=== PATIENT | female | born 2005 | race Caucasian/White ===

== ENCOUNTER 2025-02-04 07:24 | Emergency (ER) | payer MEDICAID, SELFPAY ==
--- OUTSIDE RECORDS SUMMARY | 2025-02-04 07:27 | XMS_ITS | Clinical Summary ---
Author Organization [employer] [facility] Address [address] [place] [id number] Care Team Providers Care Architectural Design Lecturer Name Role Phone Emi Lee MD Primary Care Provi jessica Allergies No known active allergies Medications cholecalciferol (Vitamin D-3) 2,000 unit capsuleIndicati ons:Vitamin D deficiency Take 1 Capsule (2,000 units) by mouth once daily. 90 Capsule 05/07/2024 Active ferrous sulfate 325 mg delayed release tabletIndicatio ns:Iron deficiency anemia secondary to inadequate dietary iron intake Take 1 Tablet (325 mg) by mouth once daily with a meal. 90 Tablet 05/07/2024 Active Active Problems Problem Noted Date Diagnosed Date Nasal congestion 02/21/2012 Epistaxis 12/10/2010 Overweight child 08/11/2008 Resolved Problems Problem Noted Date Diagnosed Date Resolved Date Nonspecific abnormal toxicological findings 08/20/2007 10/28/2009 Overview (08/20/2007): lead level - venous 10 08/2007 Immunizations Immunization Administration Dates Next Due COVID-19 vaccine (LSEOBio NTech 30mcg/0.3mL) 12YO+ BIVALENT PF, MDV 12/16/2021 COVID-19 vaccine (Advanced LEDs-Bio NTech 30mcg/0.3mL) PF, MDV 04/14/2021,03/23/2021 DTaP 12/27/2006, 6,2005,10/06 DTaP-IPV (Kinrix) 08/05/2009 HIB PRP-OMP (PedvaxHIB) 12/27/2006,2005, HPV 9 (Gardasil 9) 12/18/2018,12/08/2017 Hepatitis A (Peds) 08/08/2007,08/04/2006 Hepatitis B (Peds) 02/08/2006,2005, 006 Inactivated Polio Vaccine 02/08/2006,2005, 2005 Influenza A (H1N1), Inactiva oliva (Age >=3 Years) 05/22/2009 Influenza, IIV3 (Age 6-35 mos) 02/08/2006 Influenza, IIV3 (Age >=3 years) 01/06/2011,05/22 Influenza, IIV4 12/16/2021,,12/18/2018,12/08 MENINGOCOCCAL VACCINE 2 VIAL 2MO-55YO (MENVEO) 12/16/2021,12/08/2017 MMR 08/05/2009 MMRV 08/04/2006 Pneumococcal conj 13-Valent (Prevnar 13) 08/05/2009 Pneumococcal conj 7-Valent (Prevnar 7) 0 12/27/2006,02/08/2006,2005,10/06 Tdap 12/08/2017 Tuberculin (PPD) 09/06/2010 Varicella Vaccine 08/05/2009 Family History Medical History Relation Name Comments Other Mother overweight Diabetes Other 1 none Hypertension Other 2 none Asthma No Family History Cancer-breast No Family History Cancer-colon No Family History Heart Disease No Family History Relation Name Status Comments Mother Other 1 Other 2 Social History Tobacco Use Types Packs/Day Years Used Date Smoking Tobacco: Never Smokeless Tobacco: Never Tobacco Cessation:Counseling Given: No Comments:no exposure Alcohol Use Standard Drinks/Week Comments Never 0 (1 standard drink = 0.6 oz pur e alcohol) PHQ-2 Answer Date Recorded PHQ-2 TOTAL SCORE 1 05/06/2024 Social Connections Answer Date Recorded Do you often feel lonely or isolated from those around you? 0 05/06/2024 Financial Resource Strain Answer Date R ecorded Difficulty of Paying Living Expenses 3 05/06/2024 Difficulty of Paying Living Expenses Not on file 05/06/2024 Food Insecurity Answer Date Recorded Do you worry your food will run out before you are able to buy more? 1 05/06/2024 Transportation Needs Answer Date Record ed Does lack of transportation keep you from medica l appointments? 1 05/06/2024 Does lack of transportation keep you from work, meetings or getting things that you need? 2 05/06/2024 Housing Stability Answer Date Recorded What is your housing situation today? 2 05/06/2024 Utilities Answer Date Recorded Do you have trouble paying f or utilities (for example, heat, electricity, water, phone)? 1 05/06/2024 Comments No Sex and Gender Information Value Date Recorded Sex Assigned at Not on file Legal Sex Female 7:15 AM PACKAGE REINSPECTOR Gender Identity Not on file Sexual Orientation Not on file Obstetrics History Para Term AB IAB SAB Ectopic Multiple Livin g Live Births 0 0 0 0 0 0 0 0 0 0 0 Last Filed Vital Signs Vital Sign Reading Time Taken Comments Blood Pressure 116/79 05/06/2024 11:21 AM PACKAGE REINSPECTOR Pulse 82 05/06/2024 11:21 AM PACKAGE REINSPECTOR Temperature 36.9 C (98.4 F) 11/30/2022 9:59 AM CDT took tylenol 20 min ago Respiratory Rate 24 08/02/2013 1:24 PM CDT Oxygen Saturation 100% 05/06/2024 11: 21 AM PACKAGE REINSPECTOR Inhaled Oxygen Concentration - - Weight 134.5 kg (296 lb 8 oz) 05/06/2024 11:21 AM PACKAGE REINSPECTOR Height 169.8 cm (5' 6.85) 05/06/2024 1 1:21 AM PACKAGE REINSPECTOR Head Circumference 52 cm 08/11/2008 3: 18 PM CDT Body Mass Index 46.65 05/06/2024 11:21 AM PACKAGE REINSPECTOR Body Mass Index Percentile 99.84% 05/06 11:21 AM PACKAGE REINSPECTOR Growth Chart: CDC (Girls, 2- 20 Years) Plan of Treatment Health Maintenance Due Date Last Done Comments HIV for age 15-65 2020 Well Child Check for age 3-20 03/23/2022, 10/17/2019, 12/08/2017, Additional history exists Hepatitis C screening for ag e 18-79 08/04/2023 Influenza Vaccine (#1) 2024 , 03/23/2021, 12/18/2018, Additional history exists BMI (ht and wt on same day) for age 18+ 05/06/2025 05/06/2024 Depression screening for age 12+ 05/07/2025 05/07/2024, 05/06/2024, 07/20/2022, Additional history exists Tetanus booster 12/09/2027 12/08/2017 RSV vaccine for adults or (1 - 1-dose 75+ series) 2080 Hepatitis B series for 19+ Completed 02/08, 2005, 2005 Pneumococcal series for age 6-49 Completed 08/05/2009, 12/27/2006, 02/08/2006, Additional history exists HPV series for age 9-45 Completed 12/18/2018, 12/08 Meningococcal series for age 11-21 Completed 2021, 12/08/[address] [address] [facility] [address] [id number] Care Teams Architectural Design Lecturer Relationship Specialty Start Date End Date Emi Lee MD [address] [place] [id number] PCP - General 08/03/07
[2025-02-04 07:38] VITALS: BP 128/88; PULSE 76; RESP 20; TEMP 36.8; O2SAT 99; BMI 45.8
--- NOTE | 2025-02-04 08:11 | ED_ITS ---
HPI - General Adult General Chief complaint: Shortness of Breath/Dyspnea Stated complaint: Shortness of breath Time Seen by Provider: 02/04/25 08:11 History of Present Illness HPI narrative: Arrives with complaints of SOB, wheezing, and sneezing that started on Monday. Alert and oriented, VSS, ABCs intact. 19-year-old young woman presenting to the emergency department with concern of some shortness of breath and wheezing. Primary symptom though is wheezing and some tightness in her chest. It sounds like when much younger had wheeze in the past. Unclear etiology; may have been associated with illness and exercise. Has not needed treatment or intervention in a very long time. Unknown allergies. No fever. No cough early. Third day of the symptoms. Related Data Previous Rx's ?Medication ?Instructions ?Recorded albuterol sulfate 90 mcg/actuation 2 inh inhalation QI D PRN #6.7 grams 02/04/25 aerosol inhaler prednisone 20 mg tablet 40 mg (2 x 20 mg) PO DAILY 4 days 02/04/25 #8 tabs Allergies Allergy/AdvReac Type Severity Reaction Status Date / Time No Known Drug Allergies Allergy Verified 02/04/25 07:37 Review of Systems Status of ROS: Reports: 6 or more systems reviewed and unremarkable except as noted in History and below Exam Narrative: Exam Narrative: Pleasant. NAD. Trace end-inspiratory wheeze is audible in the room. Lungs with primarily end inspiratory wheezing. Speaking easily. Heart in regular rate and rhythm without murmur rub or gallop. Good air movement. Has been satting 98 99%. Well-perfused peripherally. Oropharynx is unremarkable. No facial swelling erythema or tenderness. Does not sound particularly congested in the nasopharynx. Const: Vital Signs, click to edit/add: Vital Signs - 24 hr 02/04/25 07:38 Temperature 98.3 F Pulse Rate [Pulse Oximeter] 76 Respiratory Rate 20 Blood Pressure [Ri ght Upper Arm] 128/88 Pulse Oximetry 99 Oxygen Delivery Me thod Room Air Documenting provider has reviewed patient's vital signs: yes Course Vital Signs Vital signs: Initial Vital Signs Temperature 98.3 F 02/04/25 07:38 Temperature Source Temporal Artery Scan 02/04/25 07:38 Pulse Rate 76 02/04/25 07:38 Respiratory Rate 20 02/04/25 07:38 Blood Pressure 128/88 02/04/25 07:38 Blood Pressure Mean 101 02/04/25 07:38 Pulse Oximetry 99 02/04/25 07:38 Oxygen Delivery Method Room Air 02/04/25 07:38 Vital Signs Temperature 98.3 F 02/04/25 07:38 Pulse Rate 76 02/04/25 07:38 Respiratory Rate 20 02/04/25 07:38 Blood Pressure 128/88 02/04/25 07:38 Pulse Oximetry 99 02/04/25 07:38 Oxygen Delivery Method Room Air 02/04/25 07:38 Temperature 98.3 F 02/04/25 07:38 Pulse Rate 76 02/04/25 07:38 Respiratory Rate 20 02/04/25 07:38 Blood Pressure 128/88 02/04/25 07:38 Pulse Oximetry 99 02/04/25 07:38 Oxygen Delivery Method Room Air 02/04/25 07:38 Medical Decision Making MDM Narrative Medical decision making narrative: It would seem that upper respiratory infection a to some wheeze. Since it has been a long time and does not seem to have major URI symptoms otherwise would do a chest x-ray to evaluate for pneumonia or pneumothorax. She does not feel like she ingested anything nor were any exposures noted. Perhaps some bronchospasm associated with the sneezing that had been described? Chest x-ray independently reviewed by me two-view looks WNL. Stable here in the emergency department. See patient discharge plan for further discussion As requested will be sending in prednisone and an albuterol inhaler to your pharmacy. A would seem that you have had a cold of some sort that has resulted in some associated wheeze. If you continue to be struggling with wheeze I would follow-up for more formal testing in clinic. Otherwise return for persistent increasing shortness of breath, worsening chest pain. Medical Records Medical records reviewed: Yes I reviewed the patient's medical records Discharge Plan Discharge Clinical Impression: URI (upper respiratory infection), Wheeze Patient Disposition: Home w/ Parent or Adult Condition: Stable Additional Instructions: As requested will be sending in prednisone and an albuterol inhaler to your pharmacy. A would seem that you have had a cold of some sort that has resulted in some associated wheeze. If you continue to be struggling with wheeze I would follow-up for more formal testing in clinic. Otherwise return for persistent increasing shortness of breath, worsening chest pain. Prescriptions: New prednisone 20 mg tablet 40 mg PO DAILY 4 Days Qty: 8 1RF albuterol sulfate 90 mcg/actuation HFA aerosol inhaler 2 inh inhalation QID PRNQty: 6.7 1RF Rx Instructions: Use with spacer Follow Up/Referrals: Emi Lee MD [Primary Care Provider, Pediatrics] Stand Alone Forms: [employer] Info Instructions
--- NOTE | 2025-02-04 08:20 | CRLHL7_ITS ---
For Patients: As a result of the Century Cures Act, medical imaging exams and procedure reports are released immediately into your electronic medical record. You may view this report before your referring provider. If you have questions, please contact your health care provider. INDICATION: Shortness of breath and wheezing. TECHNIQUE: Chest 2 views. COMPARISON: None FINDINGS: Tubes and devices: None. Lungs: Lungs are clear. No sign of infiltrate or mass. Pleura: No pleural effusion. No pneumothorax. Heart: Heart size and vasculature are normal in caliber and appearance. Yudith and Mediastinum: No enlargement. Bones and soft tissues: No significant findings. IMPRESSION: Unremarkable chest. Dictated by Chava Loredo MD @ 02/04/2025 8:47:49 AM (Electronically Signed)
== END 2025-02-04 09:13 | disposition home or self-care (01) ==
PROVIDERS: Emergency Provider Family Medicine; PCP Pediatrics
DX: J06.9 Acute upper respiratory infection, unspecified (principal); R06.2 Wheezing
CPT/HCPCS: 71046; 99283; 99284